=== PATIENT | female | born 1970 | race Two or more races ===

== ENCOUNTER 2023-04-08 13:08 | Emergency (ER) | payer OTHER ==
[~2023-04-08] VITALS: Ht 170.2 cm; Wt 63.5 kg
[~2023-04-08 13:08] MED LIST: OSEL75CA PO; XOLEGEL45 GM TOP
[2023-04-08 14:34] LABS: HEMOGLOBIN 9.8 g/dL (12.0-15.00); MEAN CELL VOLUME 80.3 fL (80.00-100.00); MEAN CORPUSCULAR HEMOGLOBIN 26.2 pg (27.00-32.0); MEAN CORPUSCULAR HGB CONC 32.6 g/dl (32.0-36.0); PLATELET COUNT 240 K/uL (150-450); RED BLOOD COUNT 3.74 M/uL (4.00-6.00); RED CELL DISTRIBUTION WIDTH 19.7 % (11.5-14.5)
== END 2023-04-08 15:54 | disposition home or self-care (01) ==
LOC: ER 13:09
DX: K59.01 Slow transit constipation (principal)

== ENCOUNTER 2025-01-23 14:07 | Outpatient (CLI) | payer OTHER | END 2025-01-23 14:09 | disposition home or self-care (01) | LOC: MRI 14:07 | PROVIDERS: ATTEND Obstetrics & Gynecology | DX: D25.9 Leiomyoma of uterus, unspecified (principal); N60.11 Diffuse cystic mastopathy of right breast; N60.12 Diffuse cystic mastopathy of left breast | CPT/HCPCS: 72197 ==